=== PATIENT | female | born 1985 | race Hispanic/Latino ===

== ENCOUNTER 2017-07-12 15:39 | Inpatient (IN) | payer BC ==
[~2017-07-12] VITALS: Ht 152.4 cm; Wt 68.5 kg
[2017-07-12 16:17] LABS: HEMATOCRIT 32.9 % (36-48); MEAN CORPUSCULAR HEMOGLOBIN 25.5 pg (27.0-33.0); MEAN CORPUSCULAR HGB CONC 32.6 g/dL (32.0-36.0); MEAN CORPUSCULAR VOLUME 78.2 fL (79-99); NUCLEATED RED BLOOD CELLS 0.1 % (0.0-0.19); PLATELET COUNT (AUTO) 176 K/uL (130-400); RED BLOOD CELL COUNT(AUTO) 4.21 MIL/uL (4.00-5.50); RED CELL DISTRIBUTION WIDTH 16.2 % (11.0-15.5); WHITE BLOOD COUNT (AUTO) 9.6 K/uL (4.8-10.8)
[2017-07-12] MEDS: LACTATED RINGERS 1000ML 1,000 ML IV PRN (21:47)
[2017-07-13] MEDS: LACTATED RINGERS 1000ML 1,000 ML IV PRN (04:07)
[2017-07-13] MEDS ORDERED: OXYTOCIN 10 USP UNITS/ML 20 UNIT in LACTATED RINGERS 1000ML 1,000 ML IV SCH (06:00)
[2017-07-13] MEDS ORDERED: LACTATED RINGERS 1000ML 1,000 ML IV ONE ×2 (06:23→16:31)
[2017-07-13] MEDS ORDERED: OXYTOCIN 10 USP UNITS/ML ONE ×2 (06:23→16:32)
[2017-07-13] MEDS ORDERED: LANOLIN 30GM OINTMENT TP PRN (11:30)
[2017-07-13] MEDS ORDERED: MEASLES/MUMPS/RUBELLA VACCINE, LIVE 0.5 ML/VIAL SQ PRN (11:30)
[2017-07-13] MEDS ORDERED: WITCH HAZEL 1 PAD TP PRN (11:30)
[2017-07-13] MEDS ORDERED: DIPH,PERTUSS(ACELL),TET VAC/PF 0.5 ML VIAL IM PRN (11:30)
[2017-07-13] MEDS ORDERED: BENZOCAINE/LANOLIN/ALOE VERA 60 ML AEROSOL TP PRN (11:30)
[2017-07-13] MEDS ORDERED: ACETAMINOPHEN-CODEINE 300/30MG TAB PO PRN (11:30)
[2017-07-13 16:31] VITALS: BP 118/74
[2017-07-13] MEDS ORDERED: PREN-154 PO (17:18)
[2017-07-13] MEDS ORDERED: DOCU100T9 PO (17:18)
[2017-07-13] MEDS ORDERED: CALC500T7 PO (17:18)
[2017-07-13] MEDS: IBUPROFEN 800 MG TAB PO PRN (17:21)
[2017-07-13 18:50] VITALS: BP 125/69
[2017-07-13] MEDS: DOCUSATE SODIUM 100 MG CAP PO SCH (20:09)
[2017-07-14 00:05] VITALS: BP 97/58
[2017-07-14] MEDS: IBUPROFEN 800 MG TAB PO PRN (06:21)
[2017-07-14 07:55] VITALS: BP 104/74
[2017-07-14] MEDS: DOCUSATE SODIUM 100 MG CAP PO SCH (09:16)
[2017-07-14 11:52] VITALS: BP 96/59
[2017-07-14 12:08] LABS: HEPATITIS Bs ANTIGEN SCREEN P Negative (Negative)
== END 2017-07-14 14:10 | disposition home or self-care (01) | DRG 775 ==
LOC: LDH 15:39 → WSH 07-13 16:28 → EDSTATUS 07-25 15:29
PROVIDERS: ADMIT Specialist; ATTEND Specialist
PROC: 10E0XZZ Delivery of Products of Conception, External Approach (ICD-10-PCS; principal; 2017-07-13)
PROC: 10907ZC Drainage of Amniotic Fluid, Therapeutic from Products of Conception, Via Natural or Artificial Opening (ICD-10-PCS; 2017-07-13)
PROC: 3E0P3VZ Introduction of Hormone into Female Reproductive, Percutaneous Approach (ICD-10-PCS; 2017-07-13)
PROC: 3E0R3BZ Introduction of Anesthetic Agent into Spinal Canal, Percutaneous Approach (ICD-10-PCS; 2017-07-13)
PROC: 00HU33Z Insertion of Infusion Device into Spinal Canal, Percutaneous Approach (ICD-10-PCS; 2017-07-13)
PROC: 3E0234Z Introduction of Serum, Toxoid and Vaccine into Muscle, Percutaneous Approach (ICD-10-PCS; 2017-07-13)
PROC: 3E0134Z Introduction of Serum, Toxoid and Vaccine into Subcutaneous Tissue, Percutaneous Approach (ICD-10-PCS; 2017-07-13)
DX: O24.420 Gestational diabetes mellitus in childbirth, diet controlled (principal); Z37.0 Single live birth; Z3A.38 38 weeks gestation of pregnancy
CPT/HCPCS: 36415; 82947; 85027; 86592; 86850; 86900; 86901; 87340; A4314; J2590; J7120

== ENCOUNTER → 2019-05-12 | Outpatient (CLI) | payer BC ==
[~2019-05-12] MED LIST: CALC500T7 PO; DOCU100T9 PO; PREN-154 PO
== END | disposition home or self-care (01) ==
LOC: RAH 12:49
PROVIDERS: ATTEND Obstetrics & Gynecology
DX: N60.02 Solitary cyst of left breast (principal)
CPT/HCPCS: 76641